=== PATIENT | female | born 1985 | race Caucasian/White ===

== ENCOUNTER 2020-02-11 11:48 | Outpatient (CLI) | payer OTHER, SELFPAY ==
[2020-02-11] VITALS (16 sets, daily range): BP systolic 108–112; BP diastolic 51–60; PULSE 81–95; O2SAT 98–100
--- NOTE | ~2020-02-11 | US_ITS ---
EXAMINATION: US right upper quadrant DATE: 02/11/2020 13:38 INDICATION: Right upper quadrant pain TECHNIQUE: Multiple grayscale and Doppler ultrasound images of the abdomen were obtained. COMPARISON: None available FINDINGS: Bowel gas obscures visualization of the pancreas. The visualized portions of the pancreas a re unremarkable. There is a 10 mm cyst of the right hepatic lobe. The liver is otherwise normal with normal echogenicity and echotexture. No surface nodularity. Normal hepatopetal flow in the main tanvir l vein. The gallbladder is normal with no abnormal wall thickening, pericholecystic fluid or stones. The normal common bile duct measures 3 mm. There was no sonographic Lambert sign. Incidental note is m jhon of mild right hydronephrosis. IMPRESSION: 1. Normal sonographic study of the gallbladder. 2. Incidental note made of mild right hydronephrosis. Reviewed, dictated and finalized at location A. GIRL
[2020-02-11 12:45] LABS: Basophils Percent Auto 0.3 % (0.2-1.2); Eosinophils Absolute Auto 0.1 K/mm3 (0-0.3); Eosinophils Percent Auto 0.5 % (0-4.4); Hematocrit 24.5 % (37.0-47.0); Immature Granulocyte Absolute 0.13 K/mm3 (0.00-0.031); Immature Granulocyte Percent A 1.1 % (0-0.5); Lymphocytes Absolute Auto 1.29 K/mm3 (0.9-3.2); Lymphocytes Percent Auto 11.4 % (18.3-44.2); Mean Corpuscular HGB Conc 32.7 g/dl (32-36); Mean Corpuscular Hemoglobin 33.6 pg (26-34); Mean Corpuscular Volume 102.9 fl (80-100); Mean Platelet Volume 8.7 fl (7.4-10.4); Monocytes Absolute Auto 0.6 K/mm3 (0.1-0.6); Monocytes Percent Auto 5.2 % (2.6-8.5); Neutrophils Absolute Auto 9.2 K/mm3 (1.3-6.7); Neutrophils Percent Auto 81.5 % (45.5-73.1); Platelet Count Result 349 k/mm3 (150-375); Red Blood Count 2.38 M/mm3 (4.2-5.4); Red Cell Distribution Width 13.6 % (11.5-14.5); White Blood Count 11.3 K/mm3 (4.5-10.0)
[2020-02-11 12:49] LABS: Add Urine Microscopic? YES; Appearance Urine Cloudy (Clear); Bacteria Urine Trace /hpf; Bilirubin Urine Negative (Negative); Blood Urine Negative (Negative); Color Urine Yellow (Yellow); Glucose Urine UA Negative (Negative); Ketones Urine 1+ mg/dL (Negative); Leukocyte Esterase Ur Negative LEU/UL (NEGATIVE); Mucus Urine Rare /lpf; Nitrate Urine Negative (Negative); Protein Urine Negative (Negative); RBC Urine 0-2 /hpf (0-2); Squamous Epithelial Cell Urine Many /hpf (Few); Urobilinogen Urine Negative mg/dL (<2.0); WBC Urine 0-3 /hpf (0-3)
[2020-02-11 12:54] LABS: Creatinine Urine 59.7 mg/dL; Total Protein Urine Random 10 mg/dL
[2020-02-11 12:59] LABS: Alanine Aminotransferase 7 U/L (4-35); Albumin Level 3.3 g/dL (3.5-5.1); Alkaline Phosphatase 92 U/L (38-126); Anion Gap 6 mmol/L (8-16); Aspartate Amino Transferase 21 U/L (14-36); Bilirubin,Total 0.2 mg/dL (0.2-1.3); Blood Urea Nitrogen 3 mg/dL (7-17); Calcium 8.4 mg/dL (8.4-10.2); Carbon Dioxide 20 mmol/L (22-30); Chloride 109 mmol/L (98-107); Estimated Glomerular Filt Rate > 60; Glucose 77 mg/dL (65-105); Potassium 3.5 mmol/L (3.4-5.0); Sodium 135 mmol/L (137-145); Uric Acid 3.2 mg/dL (2.5-7.5)
--- NOTE | 2020-02-11 13:00 | PCDIET ---
called Saige Fung CNM notified pt adsmission for headache, right upper quad pain. PIH lab result reported. order received for gallbladder ultrasound to r/o gallstone.
[2020-02-11 13:25] LABS: Amylase 46 U/L (30-110); Lipase 16 U/L (23-300)
[2020-02-11] MEDS: ACETAMINOPHEN 500 MG TABLET 1000 MG PO (14:29)
--- NOTE | 2020-02-11 15:30 | PC.NURSE ---
called Norah GUEVARA updated pt headache is relieved and upper quad pain was subsided. discharge order received
--- NOTE | 2020-02-11 17:45 | PC.NURSE ---
Addendum entered by Purvi Kimble RN 02/11/20 17:47: this note was entered for time 1356 on 02/11/2020 Original Note: called Saige hernández CNM notified ultrasound result. order received for tylenol for headaches and right upper quad pain.
== END 2020-02-11 15:35 | disposition home or self-care (01) ==
LOC: ANHOBOP 11:57 → ANHOBPP 11:58
PROVIDERS: Advanced Practice Midwife; Visit Provider Obstetrics & Gynecology
DX: O13.9 Gestational [pregnancy-induced] hypertension without significant proteinuria, unspecified trimester (principal); N13.30 Unspecified hydronephrosis; Z3A.00 Weeks of gestation of pregnancy not specified
CPT/HCPCS: 36415; 59025; 76705; 80053; 81001; 82150; 82570; 83690; 84156; 84550; 85025; 87086; 99199; A9270

== ENCOUNTER 2020-02-23 07:36 | Outpatient (CLI) | payer OTHER, SELFPAY ==
[2020-02-23 09:24] LABS: Hematocrit 26.6 % (37.0-47.0); Hemoglobin 8.9 g/dL (12.0-15.0)
[2020-02-23 09:34] LABS: Glucose 1 Hour PP 50gm Dose 156 mg/dL
[2020-02-23 09:50] LABS: Rapid Plasma Reagin Non-Reactive (NonReactive)
[2020-02-23 10:12] LABS: HIV 1/2 Ab P24 Ag Result Negative (Negative)
[2020-02-24] MEDS: RHO(D) IMMUNE GLOBULIN 300 MCG SYRINGE IM (08:22)
== END 2020-02-23 07:37 | disposition home or self-care (01) ==
LOC: ANHLAB 07:39
PROVIDERS: PCP Obstetrics & Gynecology; Visit Provider Obstetrics & Gynecology
DX: Z36.89 Encounter for other specified antenatal screening (principal)
CPT/HCPCS: 36415; 82947; 85014; 85018; 85461; 86592; 86703; 90384; 96372; G0432; J2790

== ENCOUNTER 2020-04-01 22:50 | Observation (INO) | payer OTHER, SELFPAY ==
[2020-04-01 23:13] VITALS: BP 120/71; PULSE 85
[2020-04-01 23:15] VITALS: BP 121/74; PULSE 90
[2020-04-01 23:30] VITALS: BP 120/71; PULSE 82
[2020-04-01 23:45] VITALS: BP 116/71; PULSE 82
[2020-04-02] VITALS (138 sets, daily range): BP systolic 111–136; BP diastolic 62–82; PULSE 70–135; O2SAT 94–100; BMI 22.0
[2020-04-02] MEDS: LACTATED RINGERS 1,000 ML 125 ML IV CONT (00:33)
[2020-04-02] MEDS: NIFEdipine 30 MG TAB.ER.24 PO (02:06)
[2020-04-02] MEDS: CALCIUM CARBONATE (TUMS) 500 MG (200 MG ELEMENTAL) PO (02:06)
--- NOTE | 2020-04-02 05:40 | LDADM ---
This patient, Elizabeth Wilkins, was admitted to Labor/Delivery/Recovery 105 on 04/01/20 at 22:50. Plans for labor, pain management and were discussed with patient. Patient/family oriented to hospital policies and general routines including ID bracelet, bed and alarms, visiting hours, pain management, procedures, bathroom and other care routines, personal items, smoking policy, room service/diet and guest tray routines, infant security routines, and visiting hours. Patient/Family are encouraged to report perceived risks to care and to ask questions if they do not understand what they are told or what they should do. See OBIX for further documentation.
[2020-04-02] MEDS: TERBUTALINE SULFATE 1 MG/ML VIAL 0.25 MG SUB-Q ×2 (06:32→07:33)
[2020-04-02] MEDS: BETAMETHASONE SOD PHOS/ACETATE 30 MG/5 ML VIAL 12 MG IM (06:36)
--- NOTE | 2020-04-04 17:31 | PM.OBTRLD ---
OB - Triage/Final Diagnosis Visit Information Date of evaluation: 04/03/20 Reason for evaluation: threatened labor
== END 2020-04-02 10:50 | disposition home or self-care (01) ==
PROVIDERS: Admitting Provider Obstetrics & Gynecology; Visit Provider Obstetrics & Gynecology
DX: O47.9 False labor, unspecified (principal); Z3A.00 Weeks of gestation of pregnancy not specified
CPT/HCPCS: 96360; 96372; A9270; G0378; G0379; J0702; J3105; J7120

== ENCOUNTER 2020-04-03 06:10 | Outpatient (RCR) | payer OTHER, SELFPAY ==
[2020-04-03] MEDS: BETAMETHASONE SOD PHOS/ACETATE 30 MG/5 ML VIAL 12 MG IM (06:32)
== END 2020-04-12 07:49 | disposition home or self-care (01) ==
LOC: ANHOBOP 06:10
PROVIDERS: Referring Provider Obstetrics & Gynecology; Visit Provider Obstetrics & Gynecology
DX: O36.8990 Maternal care for other specified fetal problems, unspecified trimester, not applicable or unspecified (principal); Z3A.00 Weeks of gestation of pregnancy not specified
CPT/HCPCS: 96372; J0702

== ENCOUNTER 2020-04-03 20:29 | Observation (INO) | payer OTHER, SELFPAY ==
[2020-04-03] VITALS (8 sets, daily range): BP systolic 103–108; BP diastolic 61–68; PULSE 88–105; O2SAT 99–100; BMI 21.7
--- NOTE | 2020-04-03 22:15 | LDADM ---
This patient, Elizabeth Wilkins, was admitted to Labor/Delivery/Recovery 104 on 04/03/20 at 20:29. Plans for labor, pain management and were discussed with patient. Patient/family oriented to hospital policies and general routines including ID bracelet, bed and alarms, visiting hours, pain management, procedures, bathroom and other care routines, personal items, smoking policy, room service/diet and guest tray routines, infant security routines, and visiting hours. Patient/Family are encouraged to report perceived risks to care and to ask questions if they do not understand what they are told or what they should do. See OBIX for further documentation.
--- NOTE | 2020-04-07 10:03 | PM.OBTRLD ---
OB - Triage/Final Diagnosis Final Diagnosis (1) NST (non-stress test) reactive: Code(s): Z36.89 - Encounter for other specified screening Status: Acute
== END 2020-04-03 22:37 | disposition home or self-care (01) ==
PROVIDERS: Admitting Provider Obstetrics & Gynecology; Visit Provider Obstetrics & Gynecology
DX: O60.03 Preterm labor without delivery, third trimester (principal); Z3A.35 35 weeks gestation of pregnancy
CPT/HCPCS: 96372; G0378; G0379; J0702

== ENCOUNTER 2020-04-12 17:24 | Observation (INO) | payer OTHER, SELFPAY ==
[2020-04-12 17:46] VITALS: BP 122/71; PULSE 91
[2020-04-12 18:10] VITALS: RESP 16; TEMP 36.8; BMI 21.5
[2020-04-12 19:20] VITALS: BP 120/80; PULSE 82
--- NOTE | 2020-05-06 18:41 | PM.OBTRLD ---
OB - Triage/Final Diagnosis Visit Information Comments/Additional reasons for admission: I have assessed the risk for this patient, Elizabeth Juan Claudette, and determined that she would benefit from observation care. Final Diagnosis (1) False labor: Code(s): O47.9 - False labor, unspecified Status: Acute
== END 2020-04-12 20:50 | disposition home or self-care (01) ==
PROVIDERS: Admitting Provider Obstetrics & Gynecology; Visit Provider Obstetrics & Gynecology
DX: O47.9 False labor, unspecified (principal); Z3A.00 Weeks of gestation of pregnancy not specified
CPT/HCPCS: 87081; G0378; G0379

== ENCOUNTER 2020-04-27 22:58 | Inpatient (IN) | payer OTHER, SELFPAY ==
[2020-04-27 23:17] VITALS: BP 129/79; PULSE 86
[2020-04-27 23:31] VITALS: BP 124/72; PULSE 78
[2020-04-27 23:46] VITALS: BP 121/66; PULSE 80
[2020-04-28] VITALS (87 sets, daily range): BP systolic 98–146; BP diastolic 46–97; PULSE 53–97; RESP 18; TEMP 36.2–37.2; O2SAT 90–100; BMI 24.2
[2020-04-28 00:55] LABS: Basophils Percent Auto 0.3 % (0.2-1.2); Eosinophils Absolute Auto 0.1 K/mm3 (0-0.3); Eosinophils Percent Auto 1.1 % (0-4.4); Hematocrit 28.3 % (37.0-47.0); Hemoglobin 9.5 g/dL (12.0-15.0); Immature Granulocyte Percent A 1.6 % (0-0.5); Lymphocytes Absolute Auto 1.32 K/mm3 (0.9-3.2); Lymphocytes Percent Auto 10.8 % (18.3-44.2); Mean Corpuscular HGB Conc 33.6 g/dl (32-36); Mean Corpuscular Hemoglobin 33.8 pg (26-34); Mean Corpuscular Volume 100.7 fl (80-100); Mean Platelet Volume 8.8 fl (7.4-10.4); Monocytes Absolute Auto 0.6 K/mm3 (0.1-0.6); Monocytes Percent Auto 4.8 % (2.6-8.5); Neutrophils Percent Auto 81.4 % (45.5-73.1); Platelet Count Result 338 k/mm3 (150-375); Red Blood Count 2.81 M/mm3 (4.2-5.4); White Blood Count 12.3 K/mm3 (4.5-10.0)
[2020-04-28] MEDS: LACTATED RINGERS 1,000 ML 125 ML IV CONT ×3 (01:08→05:29)
[2020-04-28] MEDS: ONDANSETRON INJ 4 MG/2 ML VIAL IV PUSH (01:08)
[2020-04-28 01:13] LABS: Barbiturate Screen Urine Negative (Negative); Benzodiazepines Screen Urine Negative (Negative)
[2020-04-28 01:16] LABS: Amphetamine Screen Urine Negative (Negative); Cannabinoid Screen Urine Positive (Negative); Cocaine Screen Urine Negative (Negative); Methadone Screen Urine Negative (Negative); Opiate Screen Urine Negative (Negative); Phencyclidine Screen Urine Negative (Negative)
--- NOTE | 2020-04-28 01:26 | P.PNAN_ITS ---
Anes - Eval Pre Procedure Procedure: Labor epirural Date/Time: 04/28/20 01:26 Surgeon: renetta Preop Diagnosis: pain during labor Pre Op Diagnosis: Contractions Patient Data Age: 35 Gender: F Height: 1.63 m Weight: 64 kg Last Vital Signs Pulse 75 04/28/20 00:16 BP 108/56 L 04/28/20 00:16 Allergies Allergy/AdvReac Type Severity Reaction Status Date / Time Penicillins Allergy Hives Verified 04/02/20 00:32 Home Medications Medication Instructions Recorded Confirmed Type xxanznpv-hax-Mr-FA 1 tablet PO DAILY 02/11/20 04/02/20 History Laboratory Tests 04/28/20 04/28/20 04/28/20 00:44 00:44 00:44 WBC 12.3 K/mm3 H K/mm3 (4.5-10.0) RBC 2.81 M/mm3 L M/mm3 (4.2-5.4) Hgb 9.5 g/dL L g/dL (12.0-15.0) Hct 28.3 % L % (37.0-47.0) MCV 100.7 fl H fl (80-100) MCH 33.8 pg pg (26-34) MCHC 33.6 g/dl g/dl (32-36) RDW 14.0 % % (11.5-14.5) Plt Count 338 k/mm3 k/mm3 (150-375) MPV 8.8 fl fl (7.4-10.4) Immature Gran % (Auto) 1.6 % H % (0-0.5) Neut % (Auto) 81.4 % H % (45.5-73.1) Lymph % (Auto) 10.8 % L % (18.3-44.2) [place] % (Auto) 4.8 % % (2.6-8.5) Eos % (Auto) 1.1 % % (0-4.4) Baso % (Auto) 0.3 % % (0.2-1.2) Lymph # (Auto) 1.32 K/mm3 K/mm3 (0.9-3.2) [place] # (Auto) 0.6 K/mm3 K/mm3 (0.1-0.6) Eos # (Auto) 0.1 K/mm3 K/mm3 (0-0.3) Baso # (Auto) 0.0 K/mm3 K/mm3 (0.0-0.1) Abs Immat Gran (auto) 0.20 K/mm3 H K/mm3 (0.00-0.031) Absolute Neuts (auto) 10.0 K/mm3 H K/mm3 (1.3-6.7) Absolute Nucleated RBC 0.0 K/mm3 K/mm3 (0.0-0.012) Nucleated RBC % 0.0 % % (0.0-0.2) Urine Opiates Screen Negative (Negative) Urine Methadone Screen Negative (Negative) Ur Barbiturates Screen Negative (Negative) Ur Phencyclidine Scrn Negative (Negative) Ur Amphetamine Screen Negative (Negative) U Benzodiazepines Scrn Negative (Negative) Urine Cocaine Screen Negative (Negative) U Cannabinoids Screen Positive A (Negative) RPR Pending Patient hx anesthesia problems: none Family hx anesthesia problems: none PMFSH Social History Social History Smoking status: Current every day smoker Tobacco type: cigarettes Substance use: current Gender identity (if verbalized by the patient): Female Sexual Orientation (if Verbalized by the Patient): Straight or Heterosexual Spiritual care concerns: No Exam Day of Procedure 04/28/20 01:26
--- NOTE | 2020-04-28 05:08 | WPDOBADMIT ---
Obstetrics - Admit Note Admission Note: record reviewed. No pertinent additions to the history and/or any subsequent changes in the physical findings that are not consistent with the expected course of the were found. PT arrived in early labor and then SROM, anticipate vaginal delivery Additions to the history and/or subsequent changes in the physical findings follow. None.
--- NOTE | 2020-04-28 05:14 | PM.OBPNLAB ---
Pain Control Date/time seen: 04/28/20 05:14 AROM forebag sve -/-2, large amount of meconium stained fluid
[2020-04-28] MEDS: OXYTOCIN 30 UNITS/NS 500 ML 30 UNITS/500 ML BAG IV CONT (07:17)
--- NOTE | 2020-04-28 10:30 | P.PCNOB_ITS ---
OB - Delivery Note Procedure Delivery date: 04/28/20 Procedure: vaginal delivery Induction method: none Delivery monitor: external FHT, external uterine and internal FHT Route of delivery: Laceration Description: None Specimen: Yes Quantitative Blood Loss (ml): 244 Anesthesia type: Epidural Disposition: other () Baby Date of : 04/28/20 Time of : 10:21 Weeks of gestation at delivery: 39 gender: Male Weight (pounds): 7 Weight (ounces): 7 presentation: vertex position: Left Occiput Anterior Placenta delivery description: Spontaneous cord vessel description: 3 Vessels, Tight, Clamped/Cut and Around Body x2 score one minute: 6 score five minutes: 9 Narrative: prototype engineer manager at delivery for meconium stained fluid. head delivered and anterior arm unable to deliver under pubic bone, fany and suprapubic pressure released the shoulder and baby delivered and handed to prototype engineer manager, mother and baby stable upon my departure, baby moving both arms. Shoulder dystocia right at 60 seconds
[2020-04-28] MEDS: OXYTOCIN 30 UNITS/NS 500 ML 30 UNITS/500 ML BAG 125 UNITS IV CONT (10:44)
--- NOTE | 2020-04-28 13:49 | PC.NURSE ---
Patient transferred to post room #289 via wheelchair. Support person present. Oriented to unit, room, information board, rooming in, admission packet and security measures. Patient verbalizes understanding.
[2020-04-28] MEDS: IBUPROFEN 600 MG TABLET PO ×2 (14:10→19:42)
[2020-04-28] MEDS: ACETAMINOPHEN 325 MG TABLET 650 MG PO ×2 (15:02→20:55)
[2020-04-29] MEDS: IBUPROFEN 600 MG TABLET PO ×2 (04:46→21:13)
[2020-04-29 08:10] LABS: Hematocrit 25.1 % (37.0-47.0); Hemoglobin 8.4 g/dL (12.0-15.0)
--- NOTE | 2020-04-29 08:22 | WPDANLDPN2 ---
Anes-Prog Note L&D Date/Time: 04/29/20 08:22 Comfortable throughout: labor and delivery Neuraxial method: epidural Epidural/Spinal procedure site: clean & non-tender Neuro status: Neuro function grossly intact. Cardiovascular status: normal Respiratory status: normal Airway patency: baseline Mental status: baseline Post-Op hydration status: normal Vital Signs: Last Vital Signs Temp 37.0 C 04/28/20 19:40 Pulse 72 04/28/20 19:40 Resp 18 04/28/20 19:40 BP 109/62 04/28/20 19:40 Pulse Ox 100 04/28/20 14:00 Pain score (VAS): 04/15 Post-procedural complaints: none Patient feedback: Patient satisfied with anesthetic care.
[2020-04-29 08:30] VITALS: BP 125/81; PULSE 60; RESP 16; TEMP 36.4; O2SAT 100
[2020-04-29] MEDS: POLYSACCHARIDE IRON COMPLEX 150 MG CAPSULE PO ×2 (09:20→17:40)
[2020-04-29] MEDS: DOCUSATE SODIUM 100 MG CAPSULE PO ×2 (09:20→17:41)
[2020-04-29] MEDS: MULTIVIT/MIN/PREN/FOL AC/IRON TABLET 1 TAB PO (09:21)
[2020-04-29] MEDS: ACETAMINOPHEN 325 MG TABLET 650 MG PO ×2 (09:24→17:40)
--- NOTE | 2020-04-29 10:18 | P.PNOB_ITS ---
OB - PN: Subj Subjective Date/time seen: 04/29/20 10:18 Patient comments: no complaints baby status: doing well [place] feeding status: exclusively bottle feeding OB - PN: Obj Data Labs CBC & Chem 7: 04/29/20 07:52 Labs: Laboratory Results - last 24 hr 04/29/20 07:52 Hgb 8.4 L Hct 25.1 L OB - PN A/P Plan day: 1 Plan: routine care and discharge home Time Spent With Patient Time: Total time spent is greater than 50% in coordination of care (as do cumented) at patient's floor/unit and/or counseling patient: Review of Systems Review of Systems: All systems reviewed & are unremarkable except as noted in HPI and below Exam Const: General: cooperative Orientation/consciousness: patient oriented x3 Psych: Affect: normal affect Attitude: cooperative Thought process: Normal thought process present Thought content: Yes Normal thought content present Insight: Good insight present (Psych) Judgement: Good judgement present (Psych)
--- NOTE | 2020-04-29 10:19 | PM.OBDSVD ---
DS: Admitting Diagnosis Admitting Diagnosis Admitting Diagnosis: Labor OB - DS: Summary OB Procedures : None OB Procedures Intrapartum: Spontaneous Vag Delivery OB Procedures: : None Time Spent with Patient Time attestation: Total time spent providing and/or coordinating discharge services: DS: Data Data Completed and Pending Pending studies at discharge: Pending at discharge 04/28/20 11:17 Surgical [PTH] Routine Labs on day of discharge: Labs from last 24 hours 04/29/20 07:52 Hgb 8.4 L Hct 25.1 L Discharge Plan Discharge Attending physician on discharge: Tammy Walsh Discharging Clinician: Reshma Sullivan Patient Disposition: Home, Self-Care Activity: pelvic rest Diet: regular Patient Instructions: Antibiotic Form, How to Stop Smoking (DC) Stand Alone Forms: General Discharge Information Follow-up/Referrals: Reshma Sullivan CNM [Certified Nurse Physician Vice President] - 4 Weeks Discharge Medications: New polysaccharide iron complex 150 mg iron Capsule 150 mg PO BIDWM Qty: 60 RF: 0 Continued ranoazha-kjq-Zb-FA 1 mg Tablet 1 tablet PO DAILY RF: 0 Date of admission: 04/27/20 22:58 Primary Care Provider: PHYSICIAN,LOADER HELPER Admitting Provider: Tammy Walsh Attending physician on admission: Tammy Walsh Condition: Stable
[2020-04-29 20:50] VITALS: BP 125/74; PULSE 66; RESP 17; TEMP 36.6; O2SAT 100
--- NOTE | 2020-04-30 07:30 | PM.OBPNVD ---
OB - PN: Subj Subjective Date/time seen: 04/30/20 07:30 Interval history: E/A/V, no pain. Patient comments: no complaints baby status: doing well [place] feeding status: breast and bottle feeding OB - PN: Obj Data Labs CBC & Chem 7: 04/29/20 07:52 Labs: Laboratory Results - last 24 hr 04/29/20 07:52 Hgb 8.4 L Hct 25.1 L OB - PN A/P Plan day: 2 Plan: routine care and discharge home Comments: anemia- iron at home. DC instructions given. Time Spent With Patient Time: Total time spent is greater than 50% in coordination of care (as documented) at patient's floor/unit and/or counseling patient: Time with patient: less than 15 minutes Exam Narrative: Exam Narrative: NAD abdomen soft, nontender, fundus firm below the umbilicus Extremities nontender, 1+ edema
--- NOTE | 2020-04-30 07:33 | PM.OBDSVD ---
DS: Admitting Diagnosis Admitting Diagnosis Admitting Diagnosis: term iup DS: Discharge Diagnosis Discharge Diagnosis (1) , delivered: Code(s): O80 - Encounter for full-term uncomplicated delivery Status: Acute OB - DS: Summary OB Procedures : Ultrasound OB Procedures Intrapartum: Spontaneous Vag Delivery OB Procedures: : None Peripartum Data Delivery Method: Natural Vaginal Laceration Description: Perineal - 1st Degree complications: none Status at Discharge Functional status at discharge: independent ambulation Time Spent with Patient Time attestation: Total time spent providing and/or coordinating discharge services: Exam Narrative: Exam Narrative: NAD abdomen soft, appropriately tender Ext non tender, 1+ edema DS: Data Data Completed and Pending Pending studies at discharge: Pending at discharge 04/28/20 11:17 Surgical [PTH] Routine Labs on day of discharge: Labs from last 24 hours 04/29/20 07:52 Hgb 8.4 L Hct 25.1 L Discharge Plan Discharge Attending physician on discharge: Klaudia Elias Discharging Clinician: Klaudia Elias Anticipated Discharge Date/Time: 04/30/20 12:00 Patient Disposition: Home, Self-Care Activity: pelvic rest Diet: regular Patient Instructions: Antibiotic Form, How to Stop Smoking (DC) Stand Alone Forms: General Discharge Information Follow-up/Referrals: Reshma Sullivan CNM [Certified Nurse Liability Claims Manager] - 4 Weeks Discharge Medications: New polysaccharide iron complex 150 mg iron Capsule 150 mg PO BIDWM Qty: 60 RF: 0 Continued xlatahgg-hmg-Cd-FA 1 mg Tablet 1 tablet PO DAILY RF: 0 Date of admission: 04/27/20 22:58 Primary Care Provider: PHYSICIAN,CORONER'S JUROR Admitting Provider: Tammy Walsh Attending physician on admission: Tammy Walsh Condition: Stable
[2020-04-30 08:45] VITALS: BP 118/79; PULSE 71; RESP 18; TEMP 36.8; O2SAT 99
[2020-04-30 09:16] LABS: Rapid Plasma Reagin Non-Reactive (NonReactive)
[2020-04-30] MEDS: IBUPROFEN 600 MG TABLET PO (11:00)
[2020-04-30] MEDS: DOCUSATE SODIUM 100 MG CAPSULE PO (11:02)
[2020-04-30] MEDS: POLYSACCHARIDE IRON COMPLEX 150 MG CAPSULE PO (11:02)
[2020-04-30] MEDS: TETANUS,DIPHTHERIA,AC PERTUSSIS ADULT (0.5 ML) BOOSTRIX IM (11:04)
--- NOTE | 2020-04-30 11:23 | PC.NURSE ---
Verified with Dr. Elias that patient can be seen in immigration associate office in 4 weeks rather than follow up here at [facility]; patient has station superintendent appointment set for 05/01/20 @ 10:20.
--- NOTE | 2020-04-30 11:34 | PC.NURSE ---
Patient viewed the discharge video Mother & Baby Care, The First Two Weeks . Patient was given the opportunity and encouraged to ask questions. Patient verbalized understanding of information shared and has been given the mother/baby guide for home reference.
--- NOTE | 2020-04-30 14:38 | PC.NURSE ---
1400 Pt's primary nurse asked LC to come to room to assist mother with breast feeding; mother has been bottle feeding, but nurse found her trying to get to breast feed. Mother stated she just wants the experience of breast feeding. Baby undressed to a diaper for feeding; he was awake and rooting. Mother taught positioning, alignment, use of c-hold, and nose to nipple latch on technique in cross cradle and football positions, and how to assess that baby is latched with a deep latch. several attempt required, but baby able to latch and maintain latch, demonstrating rhythmic sucking for about 5 minutes on the first side, in cross cradle. Second side, in football position, he nurse about 3-5 minutes, but not as eagerly; Mother then bottle fed and baby took that eagerly. Reviewed with parents q2-3h and on demand feedings needed for breast feeding, and that baby will probably want supplementation until her milk comes in. Mother states she has a pump at home. Nurse reinforced the importance of consistent breast feeding and/or pumping for the stimulation required to get mother's milk in and maintain supply, and pain free breast feeding and/or pumping. Mother states her first baby did not latch and she did not do any pumping. mother reports that she takes Zoloft. discussed with parents that this med is OK with breast feeding, but reminded smoking cigarettes or other drugs smoked can effect her baby, and that if she continues breast feeding, that any drug or medication be discussed with baby's doctor Parents are ready for discharge this afternoon. they did not say what their plan will be for feeding at home. Parents shown breast feeding section in pt's mother baby guide, as well as the LC contact information. Nurse encouraged them to call with any questions or concerns about breast feeding. They voiced understanding of information shared.
== END 2020-04-30 14:55 | disposition home or self-care (01) | DRG 560 ==
LOC: ANHOB2 04-30 12:17 → ANHLDR 05-02 10:48 → ANHOB2 05-02 10:48
PROVIDERS: Advanced Practice Midwife; Admitting Provider Obstetrics & Gynecology; Visit Provider Obstetrics & Gynecology
DX: O77.0 Labor and delivery complicated by meconium in amniotic fluid (principal); O66.0 Obstructed labor due to shoulder dystocia; O69.2XX0 Labor and delivery complicated by other cord entanglement, with compression, not applicable or unspecified; O76 Abnormality in fetal heart rate and rhythm complicating labor and delivery; O99.334 Smoking (tobacco) complicating childbirth; Z3A.39 39 weeks gestation of pregnancy; Z37.0 Single live birth; F17.210 Nicotine dependence, cigarettes, uncomplicated
CPT/HCPCS: 36415; 80307; 85014; 85018; 85025; 86592; 86850; 86880; 86900; 86901; 86902; 88307; 90715; A9270; J2405; J2590; J2795; J7120

== ENCOUNTER 2020-05-29 15:15 | Emergency (ER) | payer OTHER, SELFPAY ==
[2020-05-29 15:42] VITALS: BP 132/91; PULSE 79; RESP 16; TEMP 36.6; O2SAT 100
[2020-05-29 15:58] LABS: Basophils Absolute Auto 0.1 K/mm3 (0.0-0.1); Basophils Percent Auto 0.8 % (0.2-1.2); Eosinophils Absolute Auto 0.1 K/mm3 (0-0.3); Eosinophils Percent Auto 1.9 % (0-4.4); Hematocrit 36.2 % (37.0-47.0); Hemoglobin 11.6 g/dL (12.0-15.0); Immature Granulocyte Absolute 0.02 K/mm3 (0.00-0.031); Immature Granulocyte Percent A 0.3 % (0-0.5); Lymphocytes Percent Auto 27.6 % (18.3-44.2); Mean Corpuscular Hemoglobin 32.5 pg (26-34); Mean Corpuscular Volume 101.4 fl (80-100); Mean Platelet Volume 8.1 fl (7.4-10.4); Monocytes Absolute Auto 0.6 K/mm3 (0.1-0.6); Monocytes Percent Auto 7.9 % (2.6-8.5); Neutrophils Absolute Auto 4.5 K/mm3 (1.3-6.7); Neutrophils Percent Auto 61.5 % (45.5-73.1); Platelet Count Result 458 k/mm3 (150-375); Red Blood Count 3.57 M/mm3 (4.2-5.4); Red Cell Distribution Width 13.4 % (11.5-14.5); White Blood Count 7.2 K/mm3 (4.5-10.0)
[2020-05-29 16:11] LABS: Alanine Aminotransferase 11 U/L (4-35); Albumin Level 4.2 g/dL (3.5-5.1); Alkaline Phosphatase 106 U/L (38-126); Anion Gap 7 mmol/L (8-16); Aspartate Amino Transferase 19 U/L (14-36); Bilirubin,Total 0.2 mg/dL (0.2-1.3); Blood Urea Nitrogen 12 mg/dL (7-17); Calcium 9.2 mg/dL (8.4-10.2); Carbon Dioxide 26 mmol/L (22-30); Chloride 106 mmol/L (98-107); Estimated CRCL calculation 75 ml/min; Estimated Glomerular Filt Rate > 60; Glucose 97 mg/dL (65-105); Potassium 4.7 mmol/L (3.4-5.0); Sodium 139 mmol/L (137-145)
[2020-05-29 18:15] VITALS: BP 132/91; PULSE 79; RESP 16; TEMP 36.6; O2SAT 100
--- NOTE | 2020-05-29 18:20 | PC.NURSE ---
patient brought back to ED room 10 with c/o increased vaginal bleeding. see initial notes. no change in patient condition since triage completed. patient has been in our waiting area due to no beds available in the ED. alert. oriented. resting on stretcher. waiting for further orders from provider. labs were drawn in triage.
[2020-05-29] MEDS: SODIUM CHLORIDE 0.9% IV 1,000 ML 999 ML IV CONT (18:32)
--- NOTE | 2020-05-29 20:27 | ED.FEMALEGU ---
HPI - Female Genitourinary General Chief complaint: Vaginal Bleeding Stated complaint: 4 weeks , vaginal bleeding Time Seen by Provider: 05/29/20 17:27 Source: patient Mode of arrival: ambulatory Limitations: no limitations History of Present Illness HPI Narrative: 35 years old white female status post vaginal delivery 1 month ago, noticed a gradual increase of the bleeding in the last 4 days, today have bleeding like menstrual cycle. Patient denies any pain, patient denies any sexual activity since she have the baby because she have no partner Related Data Home Medications Medication Instructions Recorded Confirmed doagvqft-ipu-Dj-FA 1 tablet PO DAILY 02/11/20 04/28/20 Allergies Allergy/AdvReac Type Severity Reaction Status Date / Time Penicillins Allergy Hives Verified 04/02/20 00:32 Review of Systems Review of Systems: Narrative: CONSTITUTIONAL: Denies fever, chills, or sweats. EYES: Denies visual changes, redness, or discharge. ENT: Denies rhinorrhea, congestion, sore throat, or otalgia. CARDIOVASCULAR: Denies chest pain, palpitations, or edema. RESPIRATORY: Denies cough or dyspnea. GASTROINTESTINAL: Denies abdominal pain, nausea, vomiting, or diarrhea. GENITOURINARY: Denies dysuria or hematuria. SKIN: Denies rash or itching. MUSCULOSKELETAL: Denies back pain, joint pain, or myalgia. NEUROLOGIC: Denies headache, numbness, or weakness. PSYCHIATRIC: Denies anxiety or depression. PMFSH Social History Social History Smoking status: Current every day smoker Tobacco type: cigarettes Substance use: current Gender identity (if verbalized by the patient): Female Spiritual care concerns: No Exam Narrative: Exam Narrative: General appearance: Well-developed, well-nourished Skin: Normal color Chest and respiratory: Airway patent, no respiratory distress, no accessory muscle use Heart: Regular rate/rhythm Abdomen: Soft, nontender, no organomegaly, quiet bowel sounds Vascular: Normal peripheral pulses, normal capillary refill. Neurologic: Alert and oriented ?3, CERTIFIED MEDICAL TRANSCRIPTIONIST is normal as tested, no gross motor deficit : Speculum Exam - Vagina: normal appearance of the vagina and vaginal bleeding (3 long Q-tip was enough to dry the whole vaginal pouch, no active bleeding ) Speculum Exam - Cervix: normal appearance of the cervix Bimanual exam- vagina & uterus: normal bimanual exam Course Course Emergency Course: Improved Consultations Consultation #1: DR DIEGO Call tomorrow for appointment Date: 05/29/20 Time: 20:40 Vital Signs Vital signs: Vital Signs Temperature 36.6 C 05/29/20 15:42 Pulse Rate 79 05/29/20 15:42 Respiratory Rate 16 05/29/20 15:42 Blood Pressure 132/91 H 05/29/20 15:42 Pulse Oximetry 100 05/29/20 15:42 Temperature 36.6 C 05/29/20 18:15 Pulse Rate 79 05/29/20 18:15 Respiratory Rate 16 05/29/20 18:15 Blood Pressure 132/91 H 05/29/20 18:15 Pulse Oximetry 100 05/29/20 18:15 MDM - Female Genitourinary MDM Narrative Medical decision making narrative: Patient came with vaginal bleed status post vaginal delivery 1 month ago. Probably her first menstrual cycle after delivery. Labs, orthostatic blood pressure ordered, Further plan to follow, Differential Diagnosis Differential diagnosis: Likely other (Dysfunctional uterine bleeding, menstruation) Lab Data Result diagrams: 05/29/20 15:49 05/29/20 15:49 Labs: Lab Results 05/29/20 05/29/20 Range/Units 15:49 15:49 WBC 7.2 (4.5-10.0) K/mm3 RBC 3.57 L (4.2-5.4) M/mm3 Hgb 11.6 L D (12.0-15.0) g/dL Hct 36.2 L
[2020-05-29 20:37] LABS: Add Urine Microscopic? YES; Appearance Urine Cloudy (Clear); Bilirubin Urine Negative (Negative); Blood Urine 3+ (Negative); Color Urine Red (Yellow); Glucose Urine UA Negative (Negative); Ketones Urine Negative (Negative); Leukocyte Esterase Ur 1+ LEU/UL (Negative); Mucus Urine Few /lpf; Nitrate Urine Negative (Negative); Protein Urine 1+ mg/dL (Negative); RBC Urine >75 /hpf (0-2); Specific Grav Ur 1.013 (1.001-1.035); Squamous Epithelial Cell Urine Many /hpf (Few); Urobilinogen Urine Negative mg/dL (<2.0)
== END 2020-05-29 21:20 | disposition home or self-care (01) ==
PROVIDERS: Emergency Medicine; Emergency Provider Emergency Medicine; PCP Obstetrics & Gynecology
DX: O72.2 Delayed and secondary postpartum hemorrhage (principal); O99.335 Smoking (tobacco) complicating the puerperium; F17.210 Nicotine dependence, cigarettes, uncomplicated
CPT/HCPCS: 36415; 80053; 81001; 85025; 87077; 87086; 87088; 99283; J7030

== ENCOUNTER 2020-12-24 09:39 | Emergency (ER) | payer OTHER, SELFPAY ==
[2020-12-24 09:45] VITALS: BP 113/72; PULSE 84; RESP 16; TEMP 37.1; O2SAT 100
--- NOTE | 2020-12-24 10:56 | ED.FEMALEGU ---
HPI - Female Genitourinary General Chief complaint: Urogenital-Female Stated complaint: poss yeast infection Time Seen by Provider: 12/24/20 10:14 Source: patient and RN notes reviewed Mode of arrival: ambulatory Limitations: no limitations History of Present Illness HPI Narrative: Patient presents today complaining of vaginal itching, burning, swelling, and discharge x3 days. 5 days ago she had intercourse with an ex-. She does have concerns for sexually transmitted infections. She has been applying coconut oil externally, which has been providing some relief. She is concerned she may have bacterial vaginosis. She was supposed to have an appointment with her SERVICE ASSISTANT today, but it was canceled this morning and rescheduled for 2 more weeks in the future. MD elicited complaint: vaginal discharge Related Data Home Medications Medication Instructions Recorded Confirmed norethindrone-e.estradiol-iron 1 tablet PO DAILY 12/24/20 12/24/20 [04/25 (28)] Allergies Allergy/AdvReac Type Severity Reaction Status Date / Time No Known Allergies Allergy Verified 12/24/20 09:54 Review of Systems Review of Systems: CONSTITUTIONAL: Denies body aches, fever, chills, or sweats. EYES: Denies visual changes, redness, or discharge. ENT: Denies rhinorrhea, congestion, sore throat, or otalgia. CARDIOVASCULAR: Denies chest pain, palpitations, or edema. RESPIRATORY: Denies cough or dyspnea. GASTROINTESTINAL: Denies abdominal pain, nausea, vomiting, or diarrhea. GENITOURINARY: Denies dysuria or hematuria.+ Vaginal itching, burning, swelling and discharge SKIN: Denies rash, itching, or wounds. MUSCULOSKELETAL: Denies back pain, joint pain, or myalgia. NEUROLOGIC: Denies headache, numbness, tingling, or weakness. PSYCH: Denies depression or anxiety. [facility] Social History Social History Smoking status: Current every day smoker Tobacco type: cigarettes Substance use: current Gender identity (if verbalized by the patient): Female Sexual Orientation (if Verbalized by the Patient): Straight or Heterosexual Spiritual care concerns: No Comments At time of signature, I have reviewed and agree with nursing past medical, surgical, social and family history unless otherwise noted. Please see nursing chart for further information. There is no relevant family history pertinent to the presenting complaint Exam Narrative: GENERAL: Well-appearing, well-nourished, and in no acute distress. HEAD: Normocephalic, atraumatic. EYES: EOMI. No redness or drainage. Conjunctivae normal. ENT: Mucous membranes pink and moist. NECK: Normal AROM. CHEST: No respiratory distress. ABDOMEN: Soft, nontender, nondistended, normal active bowel sounds. : Vaginal wall is mildly erythematous with moderate amount of thin yellow vaginal discharge. Cervix does not appear friable. Swabs obtained. External genitalia appears normal. MUSCULOSKELETAL: No bony tenderness. EXTREMITIES: Normal range of motion. No edema. SKIN: Warm, dry, no rash. Capillary refill normal. Normal skin turgor. NEURO: No focal deficits. Alert and oriented x3. Gait steady. PSYCH: Normal affect. No signs of depression or anxiety. Course Vital Signs Vital signs: Vital Signs Temperature 98.7 F 12/24/20 09:45 Pulse Rate 84 12/24/20 09:45 Respiratory Rate 16 12/24/20 09:45 Blood Pressure 113/72 12/24/20 09:45 Pulse Oximetry 100 12/24/20 09:45 Temperature 98.7 F 12/24/20 09:45 Pulse Rate 84 12/24/20 09:45 Respiratory Rate 16 12/24/20 09:45 Blood Pressure 113/72 12/24/20 09:45 Pulse Oximetry 100 12/24/20 09:45 Reviewed MDM - Female Genitourinary Differential Diagnosis Differential diagnosis: Likely urinary tract infection, bacterial vaginosis, trichomoniasis, vaginitis and other (Kaylan, gonorrhea, chlamydia) Lab Data Attestation: I reviewed the patient's lab results. Labs: Lab
[2020-12-24] MEDS: LIDOCAINE HCL 1% LOCAL INJ 20 ML VIAL IM (10:59)
[2020-12-24] MEDS: cefTRIAXone 250 MG VIAL 500 MG IM (11:04)
[2020-12-24] MEDS: AZITHROMYCIN 250 MG TABLET 2000 MG PO (11:04)
--- NOTE | 2020-12-24 11:05 | PC.NURSE ---
1100-- PT WAS GIVEN ROCEPHIN 500MG IM ORDERED. UNABLE TO SCAN THE MEDICATION. AZITHROMYCIN 2 GMS ADMINISTERED PO. HAD TO OVERRIDE IN PYXIS DUE TO ORDER NOT FLOWING OVER INTO PYXIS.
== END 2020-12-24 11:20 | disposition home or self-care (01) ==
PROVIDERS: Emergency Provider Nurse Practitioner; PCP Obstetrics & Gynecology
DX: N89.8 Other specified noninflammatory disorders of vagina (principal); F17.200 Nicotine dependence, unspecified, uncomplicated
CPT/HCPCS: 87070; 87147; 87491; 87591; 87661; 96372; 99214; A9270; G0463; J0696

== ENCOUNTER 2021-01-13 10:46 | Emergency (ER) | payer OTHER, SELFPAY ==
--- NOTE | ~2021-01-13 | XR_ITS ---
XR abdomen/kub 1V DATE: 01/13/2021 12:05 INDICATION: Right flank pain for 2 days TECHNIQUE: AP view COMPARISON: None FINDINGS: Nonspecific bowel gas pattern without obstruction. The psoas shadows are intact. No visceromegaly or abnormal calcification is noted. Transitional lumbosacral vertebra. IMPRESSION: Nonspecific abdomen Reviewed, dictated and finalized at [facility]. Reviewed, dictated and finalized at [facility]. IMPRESSION: Nonspecific abdomen
[2021-01-13 11:00] VITALS: BP 112/74; PULSE 79; RESP 20; TEMP 37.4; O2SAT 100
--- NOTE | 2021-01-13 11:42 | ED.ABDPAIN ---
HPI - Abdominal Pain General Chief Complaint: Abdominal Pain Stated Complaint: Abdominal pain since Thursday Time Seen by Provider: 01/13/21 11:42 Source: patient, RN notes reviewed and old records reviewed Mode of arrival: ambulatory Limitations: no limitations History of Present Illness HPI narrative: 35 year old female who presents to express car with complaints of abdominal pain since Thursday which is sharp at times and is radiating up to left flank area today. Patient states that on Thursday she had cramping type of abdominal pain, on Thursday she was able to eat a little and drank some coffee. Today patient states that her pain is constant to her right lower abdomen radiating up to her right back area. Patient also states that she is voiding frequently. Patient does report past history of kidney stone and UTI.Patient denies any burning or pain with urination or any evidence of hematuria. MD elicited complaint: abdominal pain Related Data Allergies Allergy/AdvReac Type Severity Reaction Status Date / Time No Known Allergies Allergy Verified 12/24/20 09:54 Review of Systems Review of Systems: CONSTITUTIONAL: Denies fever, chills, or sweats. EYES: Denies visual changes, redness, or discharge. ENT: Denies rhinorrhea, congestion, sore throat, or otalgia. CARDIOVASCULAR: Denies chest pain, palpitations, or edema. RESPIRATORY: Denies cough or dyspnea. GASTROINTESTINAL:Positive for abdominal pain,no nausea, vomiting, or diarrhea. GENITOURINARY: Denies dysuria or hematuria.states frequency of urination SKIN: Denies rash or itching. MUSCULOSKELETAL: Reports left flank pain, no joint pain, or myalgia. NEUROLOGIC: Denies headache, numbness, or weakness. PSYCHIATRIC: Positive for history of anxiety or depression. All systems reviewed & are unremarkable except as noted in HPI and below PMFSH Past Medical History Medical History (Updated 01/14/21 @ 15:49 by Carmen Mcnally NP) Anxiety and depression Fracture of left wrist Kidney stone UTI (urinary tract infection) Surgical History Surgical History (Updated 01/14/21 @ 15:38 by Carmen Mcnally NP) History of dilatation and curettage Family History Family History (Updated 01/14/21 @ 15:41 by Carmen Mcnally NP) Other No significant family history Social History Social History (Updated 01/14/21 @ 15:40 by Carmen Mcnally NP) Smoking status: Current every day smoker Tobacco type: cigarettes Alcohol intake: current Alcohol use details: rare social Substance use: unknown Living arrangements: with family Gender identity (if verbalized by the patient): Female Sexual Orientation (if Verbalized by the Patient): Straight or Heterosexual Spiritual care concerns: No Comments At time of signature, agree with nursing past medical, surgical, social and family history. There is no relevant family history pertinent to the presenting complaint Exam Narrative: GENERAL: Well-appearing, well-nourished, and in no acute distress. HEAD: Normocephalic, atraumatic. EYES: PERRLA and EOMI. ENT: Nares clear, no rhinorrhea or epistaxis. Mucous membranes moist.TM's normal with good light reflex, throat pink with no lesions or exudates,no tonsil enlargement NECK: Supple.no lymphadenopathy CHEST: Clear to auscultation. No respiratory distress.SAO2 100% on room air HEART: Regular rate and rhythm. No murmur heard. Normal peripheral pulses. ABDOMEN: Soft,tender right lower quadrant of abdomen, positive McBurney tenderness, nondistended, normal active bowel sounds.left CVA tenderness EXTREMITIES: Normal range of motion. No edema. SKIN: Warm, dry, no rash. NEURO: No focal deficits. Alert and oriented x3. Course Vital Signs Vital signs: Vital Signs Temperature 37.4 C 01/13/21 11:00 Pulse Rate 79 01/13/21 11:00 Respiratory Rate 20 01/13/21 11:00 Blood Pressure 112/74 01/13/21 11:00 Pulse Oximetry 100 01/13/21 11:00 Temperature 37.4 C 01/13/21 11:
== END 2021-01-13 12:44 | disposition left against medical advice (07) ==
PROVIDERS: Emergency Provider Registered Nurse; PCP Physician Assistant
DX: R10.31 Right lower quadrant pain (principal); F17.210 Nicotine dependence, cigarettes, uncomplicated
CPT/HCPCS: 74018; 81003; 99213; G0463

== ENCOUNTER 2021-01-13 13:59 | Emergency (ER) | payer OTHER, SELFPAY ==
--- NOTE | ~2021-01-13 | CT_ITS ---
EXAMINATION: CT abdomen pelvis wo con DATE: 01/13/2021 16:54 INDICATION: Right flank pain TECHNIQUE: Computed tomography (CT) of the abdomen and pelvis was performed without intravenous contr ast. Automated exposure control and iterative reconstruction technique were employed. The dose-length product was 157.91 mGy-cm. COMPARISON: None FINDINGS: Lung bases are clear. Heart size is normal. No pericardial or pleural effusion. Hepatomegaly measurin g 19.3 cm in craniocaudal length. 1.2 cm fluid attenuation cyst in the right hepatic lobe. Decompress ed gallbladder, pancreas, bilateral adrenal glands and kidneys are normal. No urolithiasis or hydrone phrosis. Punctate splenic calcific lesions consistent with old granulomatous disease. Normal appendix . Decompressed bladder, retroverted uterus and bilateral adnexa are unremarkable. No free intraperito sabrina gas or fluid. No pathologically enlarged abdominal or pelvic lymphadenopathy. Mild lumbar and lo wer thoracic spondylosis. A couple bone islands at the right femoral head. IMPRESSION: 1. No urolithiasis or acute intra-abdominal/pelvic process. 2. Nonspecific hepatomegaly. Reviewed, dictated and finalized at [facility].
[2021-01-13 14:02] VITALS: BP 113/76; PULSE 113; RESP 15; TEMP 37.2; O2SAT 100
[2021-01-13 14:23] LABS: Basophils Percent Auto 0.5 % (0.2-1.2); Eosinophils Absolute Auto 0.1 K/mm3 (0-0.3); Eosinophils Percent Auto 1.3 % (0-4.4); Hematocrit 40.1 % (37.0-47.0); Hemoglobin 13.5 g/dL (12.0-15.0); Immature Granulocyte Absolute 0.01 K/mm3 (0.00-0.031); Immature Granulocyte Percent A 0.2 % (0-0.5); Lymphocytes Absolute Auto 1.78 K/mm3 (0.9-3.2); Lymphocytes Percent Auto 29.7 % (18.3-44.2); Mean Corpuscular HGB Conc 33.7 g/dl (32-36); Mean Corpuscular Hemoglobin 33.3 pg (26-34); Mean Platelet Volume 8.8 fl (7.4-10.4); Monocytes Absolute Auto 0.3 K/mm3 (0.1-0.6); Monocytes Percent Auto 4.8 % (2.6-8.5); Neutrophils Absolute Auto 3.8 K/mm3 (1.3-6.7); Neutrophils Percent Auto 63.5 % (45.5-73.1); Platelet Count Result 345 k/mm3 (150-375); Red Blood Count 4.05 M/mm3 (4.2-5.4); Red Cell Distribution Width 12.5 % (11.5-14.5)
[2021-01-13 14:51] LABS: Alanine Aminotransferase 16 U/L (4-35); Albumin Level 4.9 g/dL (3.5-5.1); Alkaline Phosphatase 54 U/L (38-126); Anion Gap 9 mmol/L (8-16); Aspartate Amino Transferase 23 U/L (14-36); Bilirubin,Total 0.5 mg/dL (0.2-1.3); Blood Urea Nitrogen 9 mg/dL (7-17); Calcium 9.8 mg/dL (8.4-10.2); Carbon Dioxide 24 mmol/L (22-30); Chloride 106 mmol/L (98-107); Estimated CRCL calculation 75 ml/min; Estimated Glomerular Filt Rate > 60; Glucose 125 mg/dL (65-110); Lipase 23 U/L (23-300); Potassium 3.8 mmol/L (3.4-5.0); Sodium 139 mmol/L (137-145)
[2021-01-13] MEDS: SODIUM CHLORIDE 0.9% IV 1,000 ML 999 ML IV CONT (15:38)
[2021-01-13] MEDS: ONDANSETRON INJ 4 MG/2 ML VIAL IV PUSH (15:39)
[2021-01-13 16:34] LABS: Add Urine Microscopic? YES; Appearance Urine Clear (Clear); Bacteria Urine Trace /hpf; Bilirubin Urine Negative (Negative); Blood Urine 2+ (Negative); Color Urine Yellow (Yellow); Glucose Urine UA Negative (Negative); Ketones Urine Negative (Negative); Leukocyte Esterase Ur Negative LEU/UL (Negative); Mucus Urine Rare /lpf; Nitrate Urine Negative (Negative); Protein Urine 1+ mg/dL (Negative); RBC Urine 0-2 /hpf (0-2); Specific Grav Ur 1.018 (1.001-1.035); Squamous Epithelial Cell Urine Many /hpf (Few); Urobilinogen Urine Negative mg/dL (<2.0)
[2021-01-13] MEDS: MORPHINE SULFATE (*CRX) 2 MG/ML INJ IV PUSH (17:10)
--- NOTE | 2021-01-13 17:45 | ED.GENADULT ---
HPI - General Adult General Chief complaint: Abdominal Pain Stated complaint: abd pain Time Seen by Provider: 01/13/21 14:22 Source: patient Mode of arrival: ambulatory Limitations: no limitations History of Present Illness HPI narrative: Patient presents with chief complaint of right lower quadrant abdominal pain that is achy in nature and has been occurring since Thursday. Patient reports urinary frequency. She reports soreness to low back. he also reports some discomfort with urination. Patient denies fever, vomiting. Patient denies chance of due to ending her menstrual cycle frequently and being on control pills. Related Data Allergies Allergy/AdvReac Type Severity Reaction Status Date / Time No Known Allergies Allergy Verified 12/24/20 09:54 Review of Systems Review of Systems: CONSTITUTIONAL: Denies fever, chills, or sweats. EYES: Denies visual changes, redness, or discharge. ENT: Denies rhinorrhea, congestion, sore throat, or otalgia. CARDIOVASCULAR: Denies chest pain, palpitations, or edema. RESPIRATORY: Denies cough or dyspnea. GASTROINTESTINAL: Reports abdominal pain, nausea, denies vomiting, or diarrhea. GENITOURINARY: Denies dysuria or hematuria. SKIN: Denies rash or itching. MUSCULOSKELETAL: Denies back pain, joint pain, or myalgia. NEUROLOGIC: Denies headache, numbness, dizziness, or weakness. PSYCHIATRIC: Denies anxiety or depression. [facility] Social History Social History Smoking status: Current every day smoker Tobacco type: cigarettes Substance use: current Gender identity (if verbalized by the patient): Female Sexual Orientation (if Verbalized by the Patient): Straight or Heterosexual Spiritual care concerns: No Exam Narrative: GENERAL: Well-appearing, well-nourished, and in no acute distress. HEAD: Normocephalic, atraumatic. EYES: PERRLA and EOMI. NECK: Supple. No adenopathy or masses. Range of motion intact CHEST: Clear to auscultation. No respiratory distress. No wheezes rales or rhonchi HEART: Regular rate and rhythm. No murmur heard. Normal peripheral pulses. ABDOMEN: Soft, tender to right lower quadrant, nondistended, normal active bowel sounds. No guarding or rebound tenderness. EXTREMITIES: Normal range of motion. No edema. SKIN: Warm, dry, no rash. NEURO: No focal deficits. Alert and oriented x3. PSYCH: Normal mood and affect. Course Vital Signs Vital signs: Vital Signs Temperature 98.9 F 01/13/21 14:02 Pulse Rate 113 H 01/13/21 14:02 Respiratory Rate 15 01/13/21 14:02 Blood Pressure 113/76 01/13/21 14:02 Pulse Oximetry 100 01/13/21 14:02 Temperature 98.9 F 01/13/21 14:02 Pulse Rate 113 H 01/13/21 14:02 Respiratory Rate 15 01/13/21 14:02 Blood Pressure 113/76 01/13/21 14:02 Pulse Oximetry 100 01/13/21 14:02 Medical Decision Making MDM Narrative Medical decision making narrative: Patient blood work is stable. Patient vitals are stable. Patient does not have any intra-abdominal findings on her CT abdomen pelvis. Patient's urine analysis does not show signs of UTI. Patient will treated symptomatically for UTI. Patient's urine will be sent for culture. patient instructed to follow-up with her primary care for further investigation into her symptoms. Patient to return to emergency department if she develops any emergent symptoms. Vital Signs Vital Signs: Vital Signs Temperature 98.9 F 01/13/21 14:02 Pulse Rate 113 H 01/13/21 14:02 Respiratory Rate 15 01/13/21 14:02 Blood Pressure 113/76 01/13/21 14:02 Pulse Oximetry 100 01/13/21 14:02 Temperature 98.9 F 01/13/21 14:02 Pulse Rate 113 H 01/13/21 14:02 Respiratory Rate 15 01/13/21 14:02 Blood Pressure 113/76 01/13/21 14:02 Pulse Oximetry 100 01/13/21 14:02 Lab Data Result diagrams: 01/13/21 14:14 01/13/21 14:14 Labs: Lab Results 01/13/2101/13
[2021-01-13 18:01] VITALS: BP 109/75; PULSE 66; RESP 16; O2SAT 100
== END 2021-01-13 18:02 | disposition home or self-care (01) ==
PROVIDERS: Emergency Provider Emergency Medicine; PCP Physician Assistant
DX: R30.0 Dysuria (principal); R16.0 Hepatomegaly, not elsewhere classified; F17.210 Nicotine dependence, cigarettes, uncomplicated
CPT/HCPCS: 36415; 74018; 74176; 80053; 81001; 81003; 81025; 83690; 85025; 96365; 96375; 99213; 99284; G0463; J0131; J2270; J2405; J7030